=== PATIENT | female | born 2000 | race Caucasian/White ===

== ENCOUNTER 2023-04-09 17:15 | Outpatient (CLI) | payer OTHER, SELFPAY ==
[2023-04-09 17:28] VITALS: BP 135/72; PULSE 100; TEMP 36.9; O2SAT 100
[2023-04-09 17:40] VITALS: BMI 24.7
--- NOTE | 2023-04-09 17:54 | US_ITS ---
STUDY: RENAL ULTRASOUND - COMPLETE REASON FOR EXAM: Female, 22 years old. , right-sided pain TECHNIQUE: Ultrasound evaluation of the kidneys was performed with real-time and static hdz-scale imaging. COMPARISON: None. FINDINGS: RIGHT KIDNEY: Normal location of the right kidney, which is normal in size. The right kidney measures 11.4 x 5.1 x 5.4 cm. There is a normal cortex of the right kidney. The renal cortex measures 2.0 cm. There is no right renal mass or cyst. There are no right renal calculi. There is mild hydronephrosis of the right kidney. DISTAL RIGHT URETER: There is non-visualization of the distal right ureter. There is no demonstrated right ureterovesical junction calculus. There is no demonstrated right ureteral jet. LEFT KIDNEY: Normal location of the left kidney, which is normal in size. The left kidney measures 10.4 x 5.1 x 5.0 cm. There is a normal cortex of the left kidney. The renal cortex measures 1.8 cm. There is no left renal mass or cyst. There are no left renal calculi. There is no left hydronephrosis. DISTAL LEFT URETER: There is non-visualization of the distal left ureter. There is no demonstrated left ureterovesical junction calculus. There is no demonstrated left ureteral jet. BLADDER: The urinary bladder is not well-distended. Intrauterine head partially visualized. Small amount of free fluid in the hepatorenal recess. US/Kidney and Bladder IMPRESSION: 1. Slight right hydronephrosis. No shadowing calculi. 2. Slight free fluid in the hepatorenal recess. Electronically Signed: Gt Duong MD ([place]) at 19:58 EST ,
[2023-04-09] MEDS: LACTATED RINGERS 500 ML 999 ML IV ×2 (18:00→21:05)
[2023-04-09 18:13] LABS: Absolute Lymphocyte Count 0.76 X10^3/uL (0.83-4.51); Absolute Neutrophil Count 22.2 X10^3/uL (2.0-7.7); Basophil# 0.06 X10^3/uL; Basophil% 0.2 % (0-1); Hematocrit 38.2 % (37-47); Hemoglobin 12.6 g/dL (12.0-15.0); Lymphocyte # 0.76 X10^3/ul (0.83-4.51); Lymphocyte % 3.1 % (19-41); Mean Corpuscular Hgb 31.3 pg (27.0-32.0); Mean Corpuscular Volume 94.8 fL (81-99); Mean Platelet Vol. 10.2 fl (6.2-12.0); Monocyte# 0.68 X10^3/uL; Monocyte% 2.8 % (0-10); NRBC Flagged by Analyzer 0 % (0-5); Neutrophil # 22.24 X10^3/uL (2.7-7.7); Neutrophil % 91.5 % (47-70); POSITIVE DIFFERENTIAL YES; Platelet Count 212 K/mm3 (150-450); RBC Distribution Width SD 44.9 fl (35.1-43.9); Red Blood Count 4.03 M/mm3 (4.2-5.4); White Blood Count 24.3 K/mm3 (4.4-11.0)
[2023-04-09] MEDS: Ondansetron 4 MG/2 ML Vial IV (18:19)
[2023-04-09] MEDS: Morphine 4 MG/ML Syringe IV ×3 (18:21→23:03)
[2023-04-09 18:23] LABS: AST(SGOT) 17 U/L (15-37); Alanine Aminotransfer ALT/SGPT 19 U/L (13-56); Creatinine, Serum 0.62 mg/dL (0.55-1.02); EST Glomerular Filtration Rate 130 mL/min (>60); Est Glom Filt Rate - Afr Amer 157 mL/min (>60); Estimated Creatinine Clearance 134.37 ml/min; Uric Acid 3.9 mg/dL (2.6-6.0)
[2023-04-09] MEDS: Ceftriaxone 1 GM/50 ML BAG IV (18:28)
[2023-04-09 18:31] LABS: Bacteria 0 SEEN /hpf (None Seen); Mucous, Urine 0 SEEN /hpf (<or=2+); Red Blood Cells-Urine 0 SEEN /hpf (0-5); Squamous Epithelial Cells - UA 0 SEEN /hpf (5-10); White Blood Cells 0 SEEN /hpf (0-5)
[2023-04-09] MEDS: Lactated Ringers 1,000 ML 125 ML IV (18:32)
[2023-04-09 18:33] LABS: Color, Urine Yellow (Yellow); Glucose, Dipstick Normal (Normal); Leukocyte Esterase-Dipstick Negative /ul (Negative); Nitrite-Dipstick Negative (Negative); Occult Blood-Urine 10 /ul (Negative); Protein-Dipstick 30 mg/dl (Negative); Specific Gravity, Urine 1.025 (1.002-1.030); Urine Bilirubin Dipstick Negative (Negative); Urine Clarity Clear (Clear); Urine Urobilinogen Normal (Normal)
[2023-04-09 18:34] LABS: Differential Indicated SCAN CRITERIA MET
[2023-04-09 18:42] LABS: LDH 194 U/L (84-246)
[2023-04-09 18:44] LABS: Ketone-Dipstick 150 mg/dl (Negative)
[2023-04-09 18:48] LABS: Differential Comment SCANNED
[2023-04-09 19:35] VITALS: BP 147/79; PULSE 90; TEMP 37.1
--- NOTE | 2023-04-09 19:58 | OB.TRI.PN_ITS ---
Progress Notes Date of Service: 04/09/23 Progress Note: Patient presents for triage evaluation secondary to right sided flank pain, fever, and nausea. FHT: 160 Moderate variability reactive no decelerations category I tracing [place]: irregular Contractions Assessment and plan: NST with intermittent tachycardia, accelerations, no decelerations noted. CBC indicates infection-Pre E labs nl, IV ceftriaxone and fluids, Morphine for pain control. awaiting renal US. Dr Espinoza aware of assessment and had given initial orders. Plan for IV fluids and pain control overnight and possible discharge in AM pending US results. PO Keflex to be initiated at discharge. See problem list details for additional plan information. Laboratory Studies: Laboratory Tests 04/09/23 04/09/23 Range/Units 18:23 18:00 WBC 24.3 H (4.4-11.0) K/mm3 RBC 4.03 L (4.2-5.4) M/mm3 Hgb 12.6 (12.0-15.0) g/dL Hct 38.2 (37-47) % MCV 94.8 (81-99) fL MCH 31.3 (27.0-32.0) pg MCHC 33.0 (32-36) g/dL RDW Std Deviation 44.9 H (35.1-43.9) fl RDW Coeff of Chanelle 13.0 (11.6-14.6) % Plt Count 212 (150-450) K/mm3 MPV 10.2 (6.2-12.0) fl Immature Gran % (Auto) 2.400 H (0.0-0.9) % Neut % (Auto) 91.5 H (47-70) % Lymph % (Auto) 3.1 L (19-41) % [place] % (Auto) 2.8 (0-10) % Eos % (Auto) 0.0 (0-5) % Baso % (Auto) 0.2 (0-1) % Absolute Neuts (auto) 22.2 H (2.0-7.7) X10^3/uL Absolute Lymphs (auto) 0.76 L (0.83-4.51) X10^3/uL Nucleated RBC % 0 (0-5) % Differential Comment SCANNED Creatinine 0.62 (0.55-1.02) mg/dL Estim Creat Clear Calc 134.37 ml/min Est GFR (MDRD) Af Amer 157 (>60) mL/min Est GFR (MDRD) Non-Af 130 (>60) mL/min Uric Acid 3.9 (2.6-6.0) mg/dL AST 17 (15-37) U/L ALT 19 (13-56) U/L Lactate Dehydrogenase 194 (84-246) U/L Urine Color Yellow (Yellow) Urine Clarity Clear (Clear) Urine pH 6.0 (5.0 - 8.0) Ur Specific [place] 1.025 (1.002-1.030) Urine Protein 30 H (Negative) mg/dl Urine Glucose (UA) Normal (Normal) mg/dl Urine Ketones 150 A* (Negative) mg/dl Urine Occult Blood 10 H (Negative) /ul Urine Nitrite Negative (Negative) Urine Bilirubin Negative (Negative) mg/dL Urine Urobilinogen Normal (Normal) mg/dl Ur Leukocyte Esterase Negative (Negative) /ul Urine RBC 0 SEEN (0-5) /hpf Urine WBC 0 SEEN (0-5) /hpf Ur Squamous Epith Cells 0 SEEN (5-10) /hpf Urine Bacteria 0 SEEN (None Seen) /hpf Urine Mucus 0 SEEN (<or=2+) /hpf U Random Total Protein Cancelled Urine Creatinine Cancelled Protein/Creatinin Ratio Cancelled Charges/Coding Multi Select Codes Urinary/Genital Urinary/Genital CPT Codes: 42084-50 non-stress test Interp Assessment & Plan (1) Flank pain: COMMENT: labs, renal US, IV fluids and ATB
[2023-04-09 22:56] VITALS: BP 143/79; PULSE 101; TEMP 36.7; O2SAT 98
[2023-04-10] VITALS (8 sets, daily range): BP systolic 131–139; BP diastolic 68–82; PULSE 59–90; TEMP 36.8–37.7; O2SAT 81–99
[2023-04-10] MEDS: Morphine 4 MG/ML Syringe IV ×7 (01:16→20:00)
[2023-04-10] MEDS: Lactated Ringers 1,000 ML 125 ML IV ×3 (03:10→20:06)
--- NOTE | 2023-04-10 08:27 | PCM.HP.OB ---
HPI - General General Date of Admission: 04/09/23 HPI Narrative MOE CARL, is a 22 y/o @ 37 weeks 3 days who presents to L&D for the complaint of Right upper back pain that radiates across her abdomen and down to her groin. She vomited 3 times yesterday before coming to the hospital. She is a patient of a midwifery practice and was seen by her senior informatica developer early yesterday who sent her to us for evaluation. An ultrasound of her right kidney was performed along with some blood work which showed the likely possibility of pyelonephritis. The plan yesterday was to send her home after starting antibiotics, however her pain was only controlled by morphine every 4 hours and the decision was made to admit her overnight. The results of the ultrasound are as follows: FINDINGS: RIGHT KIDNEY: Normal location of the right kidney, which is normal in size. The right kidney measures 11.4 x 5.1 x 5.4 cm. There is a normal cortex of the right kidney. The renal cortex measures 2.0 cm. There is no right renal mass or cyst. There are no right renal calculi. There is mild hydronephrosis of the right kidney. DISTAL RIGHT URETER: There is non-visualization of the distal right ureter. There is no demonstrated right ureterovesical junction calculus. There is no demonstrated right ureteral jet. LEFT KIDNEY: Normal location of the left kidney, which is normal in size. The left kidney measures 10.4 x 5.1 x 5.0 cm. There is a normal cortex of the left kidney. The renal cortex measures 1.8 cm. There is no left renal mass or cyst. There are no left renal calculi. There is no left hydronephrosis. DISTAL LEFT URETER: There is non-visualization of the distal left ureter. There is no demonstrated left ureterovesical junction calculus. There is no demonstrated left ureteral jet. BLADDER: The urinary bladder is not well-distended. Intrauterine head partially visualized. Small amount of free fluid in the hepatorenal recess. US/Kidney and Bladder IMPRESSION: 1. Slight right hydronephrosis. No shadowing calculi. 2. Slight free fluid in the hepatorenal recess. This morning she is laying in bed and just received another dose of morphine but states that she remains in moderate pain between the morphine doses. She denies vaginal bleeding, leaking fluid, or decreased movement. She deines fevers or chills. her last temp recorded at 6 am was 99. PFSH [facility] Home Medications NK 04/09/23 [History Last Taken Unknown] Allergy/AdvReac Type Severity Reaction Status Date / Time No Known Allergies Allergy Verified 04/09/23 17:41 NST FHR Rate Baby B Baseline: 130 Variability:: Moderate Accelerations:: 15 x 15 Decelerations:: None FHR Category:: Category I Uterine Activity:: no contractions ROS Constitutional Constitutional: Denies change in weight, fatigue, fever(s), headache(s), poor appetite or weakness Eyes Eyes: Denies blurry vision, change in vision, seeing flashes or spots in vision ENT HEENT: Denies dizziness, headache(s), loss taste/smell or sore throat Cardiovascular Cardiovascular: Denies chest pain, dizziness, dyspnea, irregular heart rhythm, leg edema, palpitations, rapid heart rate or vomiting Respiratory/Chest Respiratory/Chest: Denies chest tightness, cough, dyspnea or breast pain Gastrointestinal Gastrointestinal: Denies abdominal pain, anorexia, constipation, cramping, diarrhea, hemorrhoids, vomiting or weight changes Genitourinary Genitourinary: Denies dysuria, flank pain, genital lesions, genital pain, urinary frequency or urinary urgency Musculoskeletal Musculoskeletal: Denies back pain, difficulty walking, joint pain, limited range of motion, muscle cramps or numbness Integumentary Integumentary: Denies lesions or unusual bruising Neurologic Neurologic: Denies abnormal movements, abnormal speech, dizziness, numbness, seizure-like activity or syncope Psychiatric Psychiatric: Denies anxiety, behavioral changes, change in appetite, change in libido, cognitive impairment, confusion, depression, difficulty concentrating, hallucinations or suicidal thoughts Endocrine Endocrinology: Denies excessive sweating, polydipsia or polyuria Hematologic/Lymphatic Hematologic/Lymphatic: Denies easy bleeding, easy bruising or lymphadenopathy Allergic/Immunologic Allergic/Immunologic: Denies itchy eyes, lip swelling, seasonal rhinorrhea, rhinitis, throat swelling, tongue swelling, eczemia, wheezing or asthma Vital Signs Vital Signs Vital Signs: 04/09/23 17:28 04/09/23 17:28 04/09/23 17:28 Temperature Temperature Source Temporal Pulse Rate 100 Blood Pressure 135/72 H BP Systolic 135 BP Diastolic 72 Pulse Ox 04/09/23 17:28 04/09/23 17:28 04/09/23 19:35 Temperature 98.5 F Temperature Source Pulse Rate Blood Pressure 147/79 H BP Systolic 147 BP Diastolic 79 Pulse Ox 100 04/09/23 19:35 04/09/23 19:35 04/09/23 19:35 Temperature 98.8 F Temperature Source Temporal Pulse Rate 90 Blood Pressure BP Systolic BP Diastolic Pulse Ox 04/09/23 22:56 04/09/23 22:56 04/09/23 22:56 Temperature Temperature Source Pulse Rate 101 H Blood Pressure 143/79 H BP Systolic 143 BP Diastolic 79 Pulse Ox 98 04/09/23 22:56 04/09/23 22:56 04/10/23 02:29 Temperature 98.0 F Temperature Source Temporal Pulse Rate Blood Pressure 139/81 H BP Systolic 139 BP Diastolic 81 Pulse Ox 04/10/23 02:29 04/10/23 02:29 04/10/23 02:29 Temperature Temperature Source Temporal Pulse Rate 59 L 81 Blood Pressure BP Systolic BP Diastolic Pulse Ox 04/10/23 02:29 04/10/23 02:29 04/10/23 06:16 Temperature 98.3 F Temperature Source Pulse Rate Blood Pressure 136/78 H BP Systolic 136 BP Diastolic 78 Pulse Ox 99 04/10/23 06:16 04/10/23 06:16 04/10/23 06:16 Temperature Temperature Source Temporal Pulse Rate 90 Blood Pressure BP Systolic BP Diastolic Pulse Ox 96 04/10/23 06:16 Temperature 99.0 F Temperature Source Pulse Rate Blood Pressure BP Systolic BP Diastolic Pulse Ox Weight Weight: 153 lb 4 oz Body Mass Index (BMI) 24.7 Physical Exam Const alert, oriented x3, no apparent distress and healthy appearing General Appearance: cooperative; Negative for anxious HEENT normocephalic Face and Sinus: normal facial exam Eyes EOMs intact bilaterally and no scleral icterus General Eye: normal appearance of both eyes Neck full ROM and supple Lymph Lymphatic: no lymphadenopathy noted Chest Chest: abnormal inspection of the chest Resp normal respiratory effort Effort and Inspection: able to speak in complete sentences Cardio regular rate GI soft to palpation and non-tender Inspection: gravid Palpation: soft; Negative for tender Extremity normal to inspection, full ROM and no clubbing, cyanosis or edema General Extremity: Negative for calf tenderness or edema Skin Lesions: no lesions Rashes: no rashes Psych mental status grossly normal Labs Labs Labs: Hct 38.2 % (37-47) Hgb 12.6 g/dL (12.0-15.0) Assessment & Plan (1) Flank pain: COMMENT: labs, renal US, IV fluids and ATB PLAN: plan to day is to repeat her cbc and order a KUB to better visualize if there is the presence of a stone due to continued pain despite 12 hours of fluids and abx. will discontinue ceftriaxone and start zosyn today (2) 37 weeks gestation of : COMMENT: , followed by midwifery practice - normal 28 week labs per documentation bedside scan showed a 37 week 6 day head circ, a 36 week abd circ, 37 week 6 day femur length and dixon of 16 (3) Rh negative status during : COMMENT: FOB's blood type was documented as Rh negative also, no rhogam given.
[2023-04-10] MEDS: Ondansetron 4 MG/2 ML Vial IV ×2 (08:29→17:51)
--- NOTE | 2023-04-10 08:45 | RAD_ITS ---
STUDY: X-RAY - ABDOMEN/PELVIS REASON FOR EXAM: Female, 22 years old. R/O kidney stone TECHNIQUE: AP supine and upright views of the abdomen and pelvis. COMPARISON: None. FINDINGS: Normal visualized lung bases. There is an unremarkable bowel gas pattern. There is no demonstrated free abdominal air. The visualized liver, spleen and kidneys are grossly normal in size and morphology. No obvious renal or ureteral stone. Partially calcified skeleton with developing fetus consistent with . Normal visualized osseous structures. RAD/Abd Inc Decub and/or Erect IMPRESSION: Normal x-ray examination of the abdomen and pelvis with . No bowel obstruction or pneumoperitoneum. No obvious renal or ureteral stone. Electronically Signed: Junior Osborne MD at 9:59 EST ,
[2023-04-10 09:03] LABS: Absolute Lymphocyte Count 1.28 X10^3/uL (0.83-4.51); Absolute Neutrophil Count 20.8 X10^3/uL (2.0-7.7); Basophil# 0.05 X10^3/uL; Basophil% 0.2 % (0-1); Hematocrit 35.6 % (37-47); Lymphocyte # 1.28 X10^3/ul (0.83-4.51); Lymphocyte % 5.4 % (19-41); Mean Corp Hgb Conc 33.7 g/dL (32-36); Mean Corpuscular Volume 94.9 fL (81-99); Mean Platelet Vol. 10.4 fl (6.2-12.0); Monocyte# 1.33 X10^3/uL; Monocyte% 5.6 % (0-10); NRBC Flagged by Analyzer 0 % (0-5); Neutrophil # 20.77 X10^3/uL (2.7-7.7); Neutrophil % 87.3 % (47-70); POSITIVE DIFFERENTIAL YES; Platelet Count 204 K/mm3 (150-450); RBC Distribution Width CV 13.2 % (11.6-14.6); RBC Distribution Width SD 45.4 fl (35.1-43.9); Red Blood Count 3.75 M/mm3 (4.2-5.4); White Blood Count 23.8 K/mm3 (4.4-11.0)
[2023-04-10 09:08] LABS: Differential Indicated SCAN CRITERIA MET
[2023-04-10] MEDS: Piperacil/Tazobactam 3.375 GM in 0.9% Normal Saline (50mL MB+) 50 ML IV ×3 (09:17→21:09)
[2023-04-10 09:32] LABS: Amylase 111 U/L (25-115)
[2023-04-10 09:34] LABS: Differential Comment SCANNED
[2023-04-10] MEDS: 0.9% Saline Lock 10 ML Syringe IV ×3 (15:21→21:10)
[2023-04-11] MEDS: Morphine 4 MG/ML Syringe IV (00:25)
[2023-04-11 02:06] VITALS: BP 127/73; PULSE 74; TEMP 36.8
[2023-04-11] MEDS: Piperacil/Tazobactam 3.375 GM in 0.9% Normal Saline (50mL MB+) 50 ML IV ×2 (03:15→08:30)
[2023-04-11] MEDS: 0.9% Saline Lock 10 ML Syringe IV (03:15)
[2023-04-11] MEDS: Lactated Ringers 1,000 ML 125 ML IV (04:53)
[2023-04-11 06:16] VITALS: BP 131/73; PULSE 85; TEMP 36.8
--- NOTE | 2023-04-11 07:19 | OB.TRI.NOTE ---
HPI - General General Date of Admission: 04/09/23 Date of Service: 04/11/23 HPI Narrative MOE CARL, is a 22 F at 37 weeks gestation who presented to L&D on Tuesday with right sided Pyelonephritis. IV ATB and pain medication were started. She is feeling much better this am. Maternal Data Information Final SHILPA: 04/28/23 Gestational age: 37 PFSH PFSH Home Medications cephalexin 500 mg capsule 500 mg PO TID 10 days #30 caps 04/10/23 [Rx Last Taken Unknown] ondansetron 4 mg disintegrating tablet 4 mg PO Q6H PRN nausea and vomiting #30 tabs 04/10/23 [Rx Last Taken Unknown] oxycodone-acetaminophen 5 mg-325 mg tablet (Percocet) 1 tab PO Q4H PRN pain 7 days #20 tabs 04/10/23 [Rx Last Taken Unknown] Allergy/AdvReac Type Severity Reaction Status Date / Time No Known Allergies Allergy Verified 04/09/23 17:41 ROS Constitutional Constitutional: Reports systems reviewed and no addt'l complaints, except as documented Cardiovascular Cardiovascular: Reports systems reviewed and no addt'l complaints, except as documented Respiratory/Chest Respiratory/Chest: Reports systems reviewed and no addt'l complaints, except as documented Gastrointestinal Gastrointestinal: Reports systems reviewed and no addt'l complaints, except as documented Genitourinary Genitourinary: Reports systems reviewed and no addt'l complaints, except as documented Musculoskeletal Musculoskeletal: Reports systems reviewed and no addt'l complaints, except as documented Integumentary Integumentary: Reports systems reviewed and no addt'l complaints, except as documented Neurologic Neurologic: Reports systems reviewed and no addt'l complaints, except as documented Psychiatric Psychiatric: Reports systems reviewed and no addt'l complaints, except as documented Endocrine Endocrinology: Reports systems reviewed and no addt'l complaints, except as documented Hematologic/Lymphatic Hematologic/Lymphatic: Reports systems reviewed and no addt'l complaints, except as documented Allergic/Immunologic Allergic/Immunologic: Reports systems reviewed and no addt'l complaints, except as documented Physical Exam Const alert, oriented x3 and no apparent distress General Appearance: cooperative and comfortable Neck full ROM Chest inspection of chest normal and palpation of chest normal Resp normal respiratory effort Cardio regular rate GI normal to inspection, nondistended, normoactive bowel sounds and soft to palpation Inspection: gravid external exam normal Back/Spine no CVA tenderness, normal ROM and normal to inspection Neuro moves all extremities Psych mental status grossly normal NST FHR Rate Baby A Baseline: 145 Variability:: Moderate Accelerations:: 15 x 15 Decelerations:: None NST Reactive:: Yes FHR Category:: Category I Uterine Activity:: irregular Assessment & Plan (1) Pyelonephritis affecting : PLAN: CBC URINE dc home if WBCs decreased PO ATB zofran and pain medication in room Plan and assessment reviewed with Dr Mckeon and she agrees with plan of care (2) Rh negative status during : COMMENT: FOB's blood type was documented as Rh negative also, no rhogam given. (3) 37 weeks gestation of : COMMENT: , followed by midwifery practice - normal 28 week labs per documentation bedside scan showed a 37 week 6 day head circ, a 36 week abd circ, 37 week 6 day femur length and dixon of 16 (4) Flank pain: COMMENT: labs, renal US, IV fluids and ATB Charges/Coding Multi Select Codes Urinary/Genital Urinary/Genital CPT Codes: 61740-53 non-stress test Interp
[2023-04-11 07:43] VITALS: BP 125/78; PULSE 87
[2023-04-11 08:05] LABS: Absolute Lymphocyte Count 1.52 X10^3/uL (0.83-4.51); Absolute Neutrophil Count 20.9 X10^3/uL (2.0-7.7); Basophil# 0.06 X10^3/uL; Basophil% 0.2 % (0-1); Eosinophil# 0.02 X10^3/uL; Eosinophils% 0.1 % (0-5); Hematocrit 36.7 % (37-47); Hemoglobin 12.1 g/dL (12.0-15.0); Lymphocyte # 1.52 X10^3/ul (0.83-4.51); Lymphocyte % 6.1 % (19-41); Mean Corpuscular Hgb 31.4 pg (27.0-32.0); Mean Corpuscular Volume 95.3 fL (81-99); Mean Platelet Vol. 10.4 fl (6.2-12.0); Monocyte# 1.99 X10^3/uL; NRBC Flagged by Analyzer 0 % (0-5); Neutrophil # 20.93 X10^3/uL (2.7-7.7); Neutrophil % 84.6 % (47-70); POSITIVE DIFFERENTIAL YES; Platelet Count 214 K/mm3 (150-450); RBC Distribution Width CV 13.7 % (11.6-14.6); RBC Distribution Width SD 47.3 fl (35.1-43.9); Red Blood Count 3.85 M/mm3 (4.2-5.4); White Blood Count 24.8 K/mm3 (4.4-11.0)
[2023-04-11 08:12] LABS: Differential Indicated SCAN CRITERIA MET
[2023-04-11 09:10] LABS: Bacteria 0 SEEN /hpf (None Seen); Mucous, Urine 0 SEEN /hpf (<or=2+); Red Blood Cells-Urine 0 SEEN /hpf (0-5); White Blood Cells 0 SEEN /hpf (0-5)
[2023-04-11 09:15] VITALS: BP 127/70; PULSE 76
[2023-04-11 09:32] LABS: Color, Urine Yellow (Yellow); Glucose, Dipstick Normal (Normal); Leukocyte Esterase-Dipstick Negative /ul (Negative); Nitrite-Dipstick Negative (Negative); Occult Blood-Urine 10 /ul (Negative); Protein-Dipstick Negative (Negative); Specific Gravity, Urine 1.015 (1.002-1.030); Urine Bilirubin Dipstick Negative (Negative); Urine Clarity Clear (Clear); Urine Urobilinogen Normal (Normal)
[2023-04-11 09:36] LABS: Ketone-Dipstick 150 mg/dl (Negative)
[2023-04-11 09:39] LABS: Squamous Epithelial Cells - UA 0-5 SEEN /hpf (5-10)
[2023-04-12 13:41] LABS: Pathologist Review Reviewed
--- NOTE | 2023-04-19 15:36 | NURSING ---
LR and [place] stop times entered after reviewing EMR and verifying times.
== END 2023-04-11 10:25 | disposition home or self-care (01) ==
LOC: WPOUT 17:24 → WP 17:25
PROVIDERS: Advanced Practice Midwife; PCP Family Medicine; Referring Provider Obstetrics & Gynecology; Visit Provider Obstetrics & Gynecology
DX: O23.03 Infections of kidney in pregnancy, third trimester (principal); O99.891 Other specified diseases and conditions complicating pregnancy; R10.9 Unspecified abdominal pain; Z3A.37 37 weeks gestation of pregnancy
CPT/HCPCS: 96375 ×11; 96366 ×3; 96365; 96367 ×39; 36415; 59025; 59050; 74019; 76770; 76815; 81001; 82150; 82565; 83615; 84450; 84460; 84550; 85025; 87040; 87086; 99221; J7120; A4216; G0378; J2405

== ENCOUNTER → 2023-04-12 | Outpatient (CLI) | payer OTHER, SELFPAY ==
[2023-04-12 13:00] LABS: Absolute Lymphocyte Count 1.92 X10^3/uL (0.83-4.51); Absolute Neutrophil Count 12.8 X10^3/uL (2.0-7.7); Basophil# 0.04 X10^3/uL; Basophil% 0.2 % (0-1); Eosinophil# 0.09 X10^3/uL; Eosinophils% 0.6 % (0-5); Hematocrit 37.9 % (37-47); Hemoglobin 12.3 g/dL (12.0-15.0); Lymphocyte # 1.92 X10^3/ul (0.83-4.51); Lymphocyte % 11.8 % (19-41); Mean Corp Hgb Conc 32.5 g/dL (32-36); Mean Corpuscular Hgb 31.1 pg (27.0-32.0); Mean Corpuscular Volume 95.7 fL (81-99); Mean Platelet Vol. 10.6 fl (6.2-12.0); Monocyte# 1.23 X10^3/uL; Monocyte% 7.6 % (0-10); NRBC Flagged by Analyzer 0 % (0-5); Neutrophil # 12.78 X10^3/uL (2.7-7.7); Neutrophil % 78.4 % (47-70); Platelet Count 225 K/mm3 (150-450); RBC Distribution Width CV 13.3 % (11.6-14.6); RBC Distribution Width SD 47.3 fl (35.1-43.9); Red Blood Count 3.96 M/mm3 (4.2-5.4); White Blood Count 16.3 K/mm3 (4.4-11.0)
[2023-04-12 13:38] LABS: ALB/GLOB Ratio 0.7 RATIO (0.9-2.4); AST(SGOT) 22 U/L (15-37); Alanine Aminotransfer ALT/SGPT 22 U/L (13-56); Alkaline Phosphatase 143 U/L (45-117); Anion Gap 4 (5-15); BUN 9 mg/dL (7-18); BUN/Creat Ratio 14.2 RATIO (10-20); Calcium,Total 9.5 mg/dL (8.5-10.1); Chloride 105 mmol/L (98-107); Creatinine, Serum 0.64 mg/dL (0.55-1.02); EST Glomerular Filtration Rate 125 mL/min (>60); Est Glom Filt Rate - Afr Amer 151 mL/min (>60); Globulin 4.2 g/dL (2.2-4.2); Glucose 84 mg/dL (74-106); Protein, Total 7.2 g/dL (6.4-8.2); Sodium Level 136 mmol/L (136-145)
== END | disposition home or self-care (01) ==
PROVIDERS: PCP Family Medicine; Referring Provider Obstetrics & Gynecology; Visit Provider Obstetrics & Gynecology
DX: O23.00 Infections of kidney in pregnancy, unspecified trimester (principal); Z3A.00 Weeks of gestation of pregnancy not specified
CPT/HCPCS: 36415; 80053; 85025